=== PATIENT | male | born 1995 | race Caucasian/White ===

== ENCOUNTER 2017-03-22 11:02 | Emergency (ER) | payer SELFPAY ==
[~2017-03-22] VITALS: Ht 170.2 cm; Wt 86.0 kg
[~2017-03-22 11:02] MED LIST: ALBUTEROL; PROAIR INHALER; [UNRECOGNIZED DRUG - OTHER]
[2017-03-22 13:00] VITALS: BP 158/84
== END 2017-03-22 14:49 | disposition left against medical advice (07) ==
LOC: ER 11:03
DX: Z53.21 Procedure and treatment not carried out due to patient leaving prior to being seen by health care provider (principal)

== ENCOUNTER 2017-10-20 15:02 | Emergency (ER) | payer SELFPAY | END 2017-10-20 16:33 | disposition left against medical advice (07) | LOC: ER 15:02 | DX: M25.569 Pain in unspecified knee (principal); Z53.21 Procedure and treatment not carried out due to patient leaving prior to being seen by health care provider ==

== ENCOUNTER 2017-12-07 14:43 | Emergency (ER) | payer SELFPAY ==
[~2017-12-07] VITALS: Ht 172.7 cm; Wt 91.0 kg
[2017-12-07] MEDS ORDERED: IBUPROFEN 600MG TABLET PO ONE (16:30)
[2017-12-07 16:51] VITALS: BP 132/89
== END 2017-12-07 17:23 | disposition home or self-care (01) ==
LOC: ER 15:14
DX: M25.561 Pain in right knee (principal); Y93.66 Activity, soccer
CPT/HCPCS: 73562; 99284

== ENCOUNTER 2018-05-28 13:39 | Emergency (ER) | payer SELFPAY ==
[~2018-05-28] VITALS: Ht 172.7 cm; Wt 92.0 kg
[2018-05-28] MEDS ORDERED: ALBUTEROL (0.083%) 2.5MG/3ML NEB HHN STA (14:06)
[2018-05-28] MEDS ORDERED: PREDNISONE 20MG TABLET PO STA (14:06)
[2018-05-28] MEDS ORDERED: IPRATROPIUM BROMIDE (0.02%) 0.5MG/2.5ML NEB HHN STA (14:06)
[2018-05-28 15:58] VITALS: BP 121/70
== END 2018-05-28 16:22 | disposition home or self-care (01) ==
LOC: ER 16:16
DX: J45.901 Unspecified asthma with (acute) exacerbation (principal)
CPT/HCPCS: 71045; 94640; 99283; J7512; J7611

== ENCOUNTER 2022-06-15 05:43 | Emergency (ER) | payer MEDICAID ==
[~2022-06-15] VITALS: Ht 170.2 cm; Wt 98.0 kg
[2022-06-15] MEDS ORDERED: SODIUM CHLORIDE 0.9% 1,000 ML IV ONE (06:00)
[2022-06-15 06:05] LABS: HEMOGLOBIN. 14.2 g/dL (14.0-18.0); MEAN CORPUSCULAR VOLUME 81.7 fL (80.0-94.0); MEAN PLATELET VOLUME 7.6 fl (7.4-10.4); PLATELET 473 x1000/uL (130-400); RED BLOOD CELL COUNT 5.26 mill/uL (4.7-6.1); RED CELL DISTRIBUTION WIDTH 14.3 % (11.6-14.6)
[2022-06-15 06:13] LABS: CHLORIDE 106 mEq/L (98-107)
[2022-06-15] MEDS ORDERED: MIDAZOLAM HCL 2 MG/2 ML VIAL IV ONE (06:15)
[2022-06-15 06:35] LABS: PLATELET ESTIMATE INCREASED
[2022-06-15 06:47] LABS: *AMPHETAMINES SCREEN URINE NEGATIVE (NEGATIVE); *BARBITURATES SCREEN URINE NEGATIVE (NEGATIVE); *BENZODIAZEPINES SCREEN URINE PRESUMTIVE POSITIVE (NEGATIVE); *COCAINE SCREEN URINE PRESUMTIVE POSITIVE (NEGATIVE); CANNABINOID URINE SCREEN PRESUMTIVE POSITIVE (NEGATIVE); METHADONE URINE SCREEN NEGATIVE (NEGATIVE); OPIATES URINE SCREEN NEGATIVE (NEGATIVE); PHENCYCLIDINE URINE SCREEN NEGATIVE (NEGATIVE)
[2022-06-15 06:51] VITALS: BP 127/72
== END 2022-06-15 06:52 | disposition home or self-care (01) ==
LOC: ER 05:43
DX: F14.10 Cocaine abuse, uncomplicated (principal); F13.10 Sedative, hypnotic or anxiolytic abuse, uncomplicated; F12.10 Cannabis abuse, uncomplicated; F41.9 Anxiety disorder, unspecified; J45.909 Unspecified asthma, uncomplicated
CPT/HCPCS: 36415; 71045; 80053; 80305; 85025; 93005; 96374; 99285; J2250; J7030

== ENCOUNTER 2025-09-10 09:40 | Emergency (ER) | payer SELFPAY ==
[~2025-09-10] VITALS: Ht 175.3 cm; Wt 118.0 kg
[2025-09-10 09:42] VITALS: O2SAT 97
[2025-09-10] MEDS ORDERED: TETANUS, DIPHTHERIA, PERTUSSIS VAC/PF 0.5ML (>10YR OLD) IM ONE (10:00)
[2025-09-10 11:12] LABS: BASOPHILS % 0.3 % (0.0-2.0); EOSINOPHILS % 0.1 % (0.0-5.0); HEMATOCRIT. 52.3 % (42.0-52.0); HEMOGLOBIN. 16.9 g/dL (14.0-18.0); LYMPHOCYTES % 11.2 % (20.0-50.0); MEAN PLATELET VOLUME 8.0 fl (7.4-10.4); MONOCYTES % 5.0 % (2.0-8.0); NEUTROPHILS % 83.4 % (40.0-76.0); PLATELET 421 x1000/uL (130-400); RED BLOOD CELL COUNT 6.26 mill/uL (4.7-6.1); RED CELL DISTRIBUTION WIDTH 16.3 % (11.6-14.6)
[2025-09-10 11:19] LABS: CREATININE 0.9 mg/dL (0.6-1.3); UREA NITROGEN BLOOD 5 mg/dL (9-23)
[2025-09-10] MEDS: LEVOFLOXACIN 750MG PREMIX 150 ML IV ONE (11:42)
[2025-09-10] MEDS: TETANUS, DIPHTHERIA, PERTUSSIS VAC/PF 0.5ML (>10YR OLD) IM ONE (11:43)
[2025-09-10] MEDS: ACETAMINOPHEN 325MG TABLET PO ONE (11:43)
[2025-09-10] MEDS: ACETAMINOPHEN 325MG TABLET PO NR (11:44)
[2025-09-10] MEDS: ONDANSETRON HCL 4MG/2ML INJ IV ONE (12:52)
[2025-09-10] MEDS: MORPHINE SULFATE 4 MG/ML INJ (FOR IV/IM USE) IV ONE (12:52)
[2025-09-10 14:02] VITALS: BP 155/90; PULSE 93; RESP 18; TEMP 36.7; O2SAT 96
== END 2025-09-10 14:20 | disposition short-term general hospital (02) ==
LOC: ER 09:40
DX: S05.32XA Ocular laceration without prolapse or loss of intraocular tissue, left eye, initial encounter (principal); S09.90XA Unspecified injury of head, initial encounter; S09.93XA Unspecified injury of face, initial encounter; J45.909 Unspecified asthma, uncomplicated; H11.32 Conjunctival hemorrhage, left eye; H05.20 Unspecified exophthalmos; F14.90 Cocaine use, unspecified, uncomplicated; F12.90 Cannabis use, unspecified, uncomplicated; Y04.0XXA Assault by unarmed brawl or fight, initial encounter; Y93.89 Activity, other specified; Y92.89 Other specified places as the place of occurrence of the external cause; Y99.8 Other external cause status
CPT/HCPCS: 80048; 85025; 86850; 86900; 86901; 87040; 36415; 70450; 70486; 72125; 90715; 90471; 96365; 96375; 99285; J2405; J2270; J1956; Z7610